=== PATIENT | male | born 2000 | race Caucasian/White ===

== ENCOUNTER 2024-06-05 10:18 | Outpatient (REF) | payer MEDICARE, MEDICAID, SELFPAY ==
[2024-06-05 11:07] LABS: Potassium 5.4 mmol/L (3.5-5.1)
== END 2024-06-05 10:19 | disposition home or self-care (01) ==
LOC: LAB 10:18
PROVIDERS: Visit Provider Internal Medicine Nephrology
DX: E87.5 Hyperkalemia (principal)
CPT/HCPCS: 36415; 84132

== ENCOUNTER 2024-06-07 10:51 | Outpatient (REF) | payer MEDICARE, MEDICAID, SELFPAY ==
[2024-06-07 11:31] LABS: Potassium 5.4 mmol/L (3.5-5.1); Thyroid Stimulating Hormone 3.243 uIU/mL (0.358-3.740)
== END 2024-06-07 10:52 | disposition home or self-care (01) ==
LOC: LAB 10:51
PROVIDERS: Visit Provider Internal Medicine
DX: R63.4 Abnormal weight loss (principal)
CPT/HCPCS: 36415; 84132; 84443

== ENCOUNTER 2024-11-27 13:20 | Outpatient (REF) | payer MEDICARE, MEDICAID, SELFPAY ==
[2024-11-27 13:37] LABS: Hemoglobin 8.9 g/dL (14.0-18.0)
== END 2024-11-27 13:21 | disposition home or self-care (01) ==
LOC: LAB 13:20
PROVIDERS: Visit Provider Internal Medicine Nephrology
DX: D64.9 Anemia, unspecified (principal)
CPT/HCPCS: 36415; 85018